=== PATIENT | female | born 1965 | race Asian ===

== ENCOUNTER 2020-08-26 09:54 | Emergency (ER) | payer MEDICAID ==
[~2020-08-26] VITALS: Ht 152.4 cm; Wt 44.5 kg
[2020-08-26 10:09] VITALS: Ht 152.4 cm; Wt 44.5 kg
[2020-08-26 12:17] LABS: BASOPHIL % 1.5 % (0.2-1.3); PLATELET COUNT 303 x10^3mcL (179-408); RED CELL DISTRIBUTION WIDTH 12.9 % (12.3-17.7)
[2020-08-26 12:36] LABS: CALCIUM 8.7 mg/dL (8.5-10.1); CARBON DIOXIDE 28.8 mmol/L (21-32); CHLORIDE SERUM 107 mmol/L (98-107); CREATININE SERUM 0.6 mg/dL (0.6-1.0); GFR1 > 60 mL/min; GLUCOSE SERUM 94 mg/dL (74-106); POTASSIUM SERUM 4.2 mmol/L (3.5-5.1); SODIUM SERUM 141 mmol/L (136-145)
[2020-08-26 12:41] LABS: ALBUMIN 3.7 g/dL (3.4-5.0); ALKALINE PHOSPHATASE 81 U/L (46-116); ALT/SGPT 21 U/L (14-59); AST/SGOT 15 U/L (15-37); BILIRUBIN TOTAL 0.4 mg/dL (0.20-1.00); TOTAL PROTEIN, SERUM 7.1 g/dL (6.4-8.2)
[2020-08-26 13:01] VITALS: BP 115/65
== END 2020-08-26 13:01 | disposition home or self-care (01) ==
LOC: ED 09:54
PROVIDERS: Emergency Medicine
DX: M25.512 Pain in left shoulder (principal); M54.6 Pain in thoracic spine
CPT/HCPCS: J1885